=== PATIENT | female | born 1965 | race Hispanic/Latino ===

== ENCOUNTER 2024-05-25 12:02 | Emergency (ER) | payer OTHER ==
[~2024-05-25] VITALS: Ht 162.6 cm; Wt 92.5 kg
[2024-05-25 13:25] VITALS: PULSE 79; RESP 16; TEMP 98; O2SAT 100
== END 2024-05-25 16:01 | disposition home or self-care (01) ==
LOC: ER 15:32
DX: M25.571 Pain in right ankle and joints of right foot (principal); M77.51 Other enthesopathy of right foot and ankle; M25.471 Effusion, right ankle; X50.1XXA Overexertion from prolonged static or awkward postures, initial encounter; Y93.01 Activity, walking, marching and hiking; Y92.89 Other specified places as the place of occurrence of the external cause; I10 Essential (primary) hypertension; E11.9 Type 2 diabetes mellitus without complications; E78.5 Hyperlipidemia, unspecified
CPT/HCPCS: 99283

== ENCOUNTER 2024-09-07 09:00 | Outpatient (RCR) | payer OTHER | END 2024-09-17 | LOC: PT 09:00 | PROVIDERS: ATTEND Orthopaedic Surgery Foot and Ankle Surgery | DX: M76.71 Peroneal tendinitis, right leg (principal) ==